=== PATIENT | male | born 1975 | race Caucasian/White ===

== ENCOUNTER 2018-10-03 11:10 | Outpatient (CLI) | payer OTHER ==
--- NOTE | 2018-10-03 20:08 | Diagnostic Imaging Report ---
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 [address] Report Submission Date: Oct 03, 2018 11:52:49 AM MEDICAL ASST Patient Study Name: KENTRELL BULLARD Date: Oct 03, 2018 11:15:32 AM MEDICAL ASST Modality Type: DX Gender: M Description: SHOULDER : 71 Institution: [facility] Physician: VAUGHN LAWRENCE (JACQUELINE) - OP Right shoulder, total 3 views Clinical history: Right shoulder pain for 2 months No visible fracture, dislocation or bone destruction. No soft tissue calcification. Questionable joint effusion. Impression: Questionable joint effusion without fractures, dislocation or soft tissue calcifications Electronically signed on Oct 03, 2018 11:52:49 AM MEDICAL ASST by: Fuentes DE LEÓN
== END 2018-10-03 11:11 ==
LOC: RAD 11:10
PROVIDERS: ATTEND Nurse Practitioner Family
DX: M25.511 Pain in right shoulder (principal)
CPT/HCPCS: 73030

== ENCOUNTER 2019-09-13 15:27 | Outpatient (CLI) | payer OTHER ==
--- NOTE | 2019-09-13 22:23 | Diagnostic Imaging Report ---
PATIENT MR#: [id number] PATIENT PATIENT NAME: KENTRELL BULLARD DATE OF : 1975 REFERRING PHYSICIAN: Savannah Martinez EXAM DATE: 09/13/2019 ACCESSION NUMBER: [id number] EXAM DESCRIPTION: FOOT 3 VIEWS OR MORE CLINICAL HISTORY: LEFT FOOT, PAIN OVER 2 WEEKS, NO KNOWN INJURY COMPARISON: No study for comparison is available at the time of interpretation. TECHNIQUE: DX left foot, 3 views Osseous structures: The osseous structures are normal with no evidence of fracture or dislocation. In cidental os peroneum noted. Plantar calcaneal spur at the plantar fascia insertion, which may predispose to plant ar fasciitis. Joint spaces: The bones are well aligned. Mild degenerative arthrosis is noted at the 5th MTP joint. Soft tissues: There is normal appearance of the soft tissues with no radiopaque foreign body seen. IMPRESSION: 1.Plantar calcaneal spur at the plantar fascia insertion, which may predispose to plantar fasciitis. 2. 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 Read by: Dr. Cm Mathew Transcribed by: Cm Mahtew Transcribed Date: 09/13/2019 10:21:30 PM Electronically signed by: Dr. Cm Mathew Date signed: 09/13/2019 10:21:30 PM
== END 2019-09-13 15:37 ==
LOC: RAD 15:27
PROVIDERS: ATTEND Nurse Practitioner Family
DX: M79.672 Pain in left foot (principal)
CPT/HCPCS: 73630